=== PATIENT | male | born 1990 | race Caucasian/White ===

== ENCOUNTER 2022-05-19 21:00 | Emergency (ER) | payer BC ==
[2022-05-19] MEDS ORDERED: Sodium Chloride 0.9% 10 ML Syringe FLUSH PRN (21:10)
[2022-05-19] MEDS: Sodium Chloride 0.9% 1,000 ML IV ONE ×2 (21:19→21:59)
[2022-05-19 21:42] LABS: ANION GAP 15.4 mEq/L (7-13)
[2022-05-19] MEDS ORDERED: Acetaminophen 500 MG Tab PO ONE (22:01)
== END 2022-05-19 23:25 | disposition home or self-care (01) ==
LOC: DL.ED 21:00
DX: T67.5XXA Heat exhaustion, unspecified, initial encounter (principal)
CPT/HCPCS: 36415; 80053; 85025; 96360; 99284; A9270; J3490; J7030